=== PATIENT | female | born 1985 | race Caucasian/White ===

== ENCOUNTER 2016-12-09 17:41 | Emergency (ER) | payer OTHER ==
[~2016-12-09] VITALS: Ht 170.2 cm; Wt 50.9 kg
[~2016-12-09 17:41] MED LIST: MOTRIN 800800 MG/TAB PO; NORCO 325 MG-51 TAB PO; ZOFRAN 4MG T4 MG/TAB PO; birth control PO
[2016-12-09 17:45] VITALS: BP 96/60; TEMP 98
[2016-12-09] MEDS ORDERED: ZITHROMAX 250M250 MG PO (18:41)
[2016-12-09] MEDS ORDERED: NORCO 325 MG-51 TAB PO (18:41)
[2016-12-09 18:51] VITALS: PULSE 96
== END 2016-12-09 18:52 | disposition home or self-care (01) ==
LOC: COL.ER 17:41
DX: J20.9 Acute bronchitis, unspecified (principal); F17.210 Nicotine dependence, cigarettes, uncomplicated